=== PATIENT | male | born 1945 | race Caucasian/White ===

== ENCOUNTER 2024-04-19 13:36 | Outpatient (RCR) | payer MEDICARE, BC, SELFPAY ==
--- NOTE | 2024-04-19 14:04 | ONC.NURNOTE ---
Dx: prostate cancer
== END 2024-10-16 23:59 | disposition home or self-care (01) ==
LOC: CCIC 13:36
PROVIDERS: PCP Nurse Practitioner Family; Visit Provider Clinical Nurse Specialist
DX: C61 Malignant neoplasm of prostate (principal)
CPT/HCPCS: 99211; J2371; J2704

== ENCOUNTER 2024-04-19 13:44 | Outpatient (CLI) | payer MEDICARE, BC, SELFPAY | END 2024-04-19 13:45 | disposition home or self-care (01) | LOC: MRI 13:44 | PROVIDERS: PCP Nurse Practitioner Family; Visit Provider Nurse Practitioner | DX: C61 Malignant neoplasm of prostate (principal) | CPT/HCPCS: 72195; 99211 ==